=== PATIENT | female | born 1980 | race Caucasian/White ===

== ENCOUNTER → 2021-06-17 03:18 | Outpatient (CLI) | payer OTHER, SELFPAY ==
[2021-06-17 20:49] LABS: SARS-CoV-2 RNA PCR Negative
== END ==
PROVIDERS: PCP Physician Assistant; Visit Provider Physician Assistant
DX: R05.1 Acute cough (principal); Z20.822 Contact with and (suspected) exposure to COVID-19
CPT/HCPCS: C9803; U0003; U0005

== ENCOUNTER 2022-01-13 11:28 | Emergency (ER) | payer OTHER, SELFPAY ==
[2022-01-13 11:50] VITALS: BP 122/63; PULSE 74; RESP 20; TEMP 36.6; O2SAT 96
--- NOTE | 2022-01-13 12:38 | ED.URI ---
HPI - URI/Sore Throat General Chief Complaint: Upper Respiratory Infection Stated Complaint: sore throat Time Seen by Provider: 01/13/22 12:38 Source: patient Mode of arrival: ambulatory Limitations: no limitations History of Present Illness HPI Narrative: 41 yo F presents with c/o sore throat, uvula swelling, PND since last night. States throat is painful and feels like it's closing. have never had uvula hanging down before and touching my tongue . No fever/chills. no recent covid exposure. Speaking in full sentences. No difficulty swallowing oral secretions. all systems reviewed and negative except as noted above. Related Data Home Medications Medication Instructions Recorded Confirmed alprazolam 0.25 mg tablet 0.25 mg PO DIRECTED 01/13/22 01/13/22 dapagliflozin 5 mg-metformin ER 1 tablet PO DIRECTED 01/13/22 01/13/22 1,000 mg tablet,extended release 24hr (Xigduo XR) escitalopram oxalate 20 mg tablet 20 mg PO DAILY 01/13/22 01/13/22 rosuvastatin 5 mg tablet 5 mg PO DAILY 01/13/22 01/13/22 zolpidem 10 mg tablet 10 mg PO DAILY 01/13/22 01/13/22 Allergies Allergy/AdvReac Type Severity Reaction Status Date / Time No Known Allergies Allergy Mild Verified 01/13/22 11:31 Review of Systems Review of Systems: CONSTITUTIONAL: Denies fever, chills, or sweats. EYES: Denies visual changes, redness, or discharge. ENT: Denies rhinorrhea, congestion. Reports sore throat, uvula swelling. CARDIOVASCULAR: Denies chest pain, palpitations, or edema. RESPIRATORY: Denies cough or dyspnea. GASTROINTESTINAL: Denies abdominal pain, nausea, vomiting, or diarrhea. GENITOURINARY: Denies dysuria or hematuria. SKIN: Denies rash or itching. MUSCULOSKELETAL: Denies back pain, joint pain, or myalgia. NEUROLOGIC: Denies headache, numbness, or weakness. PSYCHIATRIC: Denies anxiety or depression. All other systems reviewed are negative, except as documented in HPI. PMFSH Comments At time of signature, agree with nursing past medical, surgical, social and family history. There is no relevant family history pertinent to the presenting complaint. Exam Narrative: GENERAL: This is a well-nourished, well-developed patient, in no apparent distress. HEAD: normocephalic, atraumatic. EYES: PERRL. Sclera clear/white. Vision is grossly intact. EARS: External ears normal, auditory canals clear and without drainage, TMs normal without perforation. Hearing grossly intact. NOSE: External nose normal with no obvious nasal discharge, nares without redness, no rhinorrhea. THROAT: Mucous membranes moist, erythema to posterior pharynx. Erythema to uvula right swelling and enlargement. No exudates. No tonsillar swelling. NECK: Neck supple, non-tender without lymphadenopathy, masses or thyromegaly. CARDIOVASCULAR: Regular rate and rhythm without murmurs, gallops, or rubs. RESPIRATORY: Clear to auscultation. Breath sounds equal bilaterally. No wheezes, rales, or rhonchi. SKIN: warm, Dry, intact with no suspicious lesions or rash, good texture and turgor. NEURO: awake, alert, and oriented to person, place and time. There were no obvious focal neurologic abnormalities. EXTREMITIES: No joint tenderness, effusion, or edema noted. Course Course Level of Care: Express Care Visit Vital Signs Vital signs: Vital Signs Temperature 36.6 C 01/13/22 11:50 Pulse Rate 74 01/13/22 11:50 Respiratory Rate 20 01/13/22 11:50 Blood Pressure 122/63 01/13/22 11:50 Pulse Oximetry 96 01/13/22 11:50 Oxygen Delivery Room Air 01/13/22 11:50 Temperature 36.6 C 01/13/22 11:50 Pulse Rate 74 01/13/22 11:50 Respiratory Rate 20 01/13/22 11:50 Blood Pressure 122/63 01/13/22 11:50 Pulse Oximetry 96 01/13/22 11:50 Oxygen Delivery Room Air 01/13/22 11:50 Reviewed MDM - URI/Sore Throat MDM Narrative Medical decision making narrative: Patient is aware of diagnosis, understands and agrees to treatment plan. Anticipatory guidance given.
== END 2022-01-13 12:48 | disposition home or self-care (01) ==
PROVIDERS: Emergency Provider Nurse Practitioner Family; PCP Physician Assistant
DX: K12.2 Cellulitis and abscess of mouth (principal); Z20.822 Contact with and (suspected) exposure to COVID-19; E78.00 Pure hypercholesterolemia, unspecified; R73.03 Prediabetes; F32.A Depression, unspecified; F41.9 Anxiety disorder, unspecified
CPT/HCPCS: 87081; 87426; 87880; 99213; C9803; G0463

== ENCOUNTER 2022-04-22 12:26 | Emergency (ER) | payer OTHER, SELFPAY ==
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
[2022-04-22 14:35] VITALS: BP 140/85; PULSE 85; RESP 16; TEMP 36.4; O2SAT 99
== END 2022-04-22 13:30 | disposition home or self-care (01) ==
PROVIDERS: Emergency Provider Nurse Practitioner; PCP Physician Assistant
DX: M54.50 Low back pain, unspecified (principal); E78.00 Pure hypercholesterolemia, unspecified; R73.03 Prediabetes; F41.9 Anxiety disorder, unspecified; F32.A Depression, unspecified
CPT/HCPCS: 99213; G0463

== ENCOUNTER 2023-06-12 13:04 | Emergency (ER) | payer OTHER, SELFPAY ==
--- NOTE | 2023-06-12 13:18 | ED.URI ---
HPI - URI/Sore Throat General Chief Complaint: Upper Respiratory Infection Stated Complaint: left ear aches,back of throat swollen,headache Time Seen by Provider: 06/12/23 13:18 Source: patient Mode of arrival: ambulatory Limitations: no limitations History of Present Illness HPI Narrative: Tere is a 42-year-old female patient presenting to clinic today with complaints of left ear pain, uvula swelling, and headache. She reports uvula swelling started this morning. Left ear discomfort and headache with nasal congestion has been going on for the past few days. She denies any fever or chills. Denies any new medications. Does not take any blood pressure medications. Denies any difficulty swallowing or breathing. MD elicited complaint: sore throat, nasal congestion and other (Ear pain, headache) Related Data Home Medications Medication Instructions Recorded Confirmed alprazolam 0.25 mg tablet 0.25 mg PO DIRECTED 01/13/22 01/13/22 dapagliflozin propaned 5 1 tablet PO DIRECTED 01/13/22 01/13/22 mg-metformin ER 1,000 mg tablet, ext rel 24hr (Xigduo XR) escitalopram oxalate 20 mg tablet 20 mg PO DAILY 01/13/22 01/13/22 rosuvastatin 5 mg tablet 5 mg PO DAILY 01/13/22 01/13/22 zolpidem 10 mg tablet 10 mg PO DAILY 01/13/22 01/13/22 alprazolam 0.25 mg tablet 0.25 mg PO QID 04/22/22 04/22/22 aripiprazole 2 mg tablet 2 mg PO DAILY 04/22/22 04/22/22 dapagliflozin propaned 5 1 tablet PO DAILY 04/22/22 04/22/22 mg-metformin ER 1,000 mg tablet, ext rel 24hr (Xigduo XR) escitalopram oxalate 20 mg tablet 20 mg PO DAILY 04/22/22 04/22/22 rosuvastatin 5 mg tablet 5 mg PO DAILY 04/22/22 04/22/22 zolpidem 10 mg tablet 10 mg PO HS PRN Insomnia 04/22/22 04/22/22 Allergies Allergy/AdvReac Type Severity Reaction Status Date / Time No Known Allergies Allergy Verified 06/18/22 15:14 Review of Systems Review of Systems: Pertinent positives per HPI. Patient denies any fever, chills, rash,visual changes, dizziness, cough, shortness of breath, chest pain, palpitations, nausea, vomiting, diarrhea, constipation, abdominal pain, or any urinary issues. FOR[facility]LY [facility], [facility] Social History Social History Alcohol intake: never Comments At the time of my signature, I reviewed and agree with the nursing past medical, surgical, social, and family history. There is no relevant family history pertinent to the patient complaint. Exam Narrative: General: Well-developed, morbidly obese, in no apparent distress Head: Normocephalic, atraumatic Eyes: Pupils equally round and reactive to light bilaterally, EOM intact, sclera and conjunctive clear, no discharge, lids normal Ears: TMs intact and congested, ear canals clear, no drainage, grossly hearing normal. Nose: Nares patent, clear nasal discharge, no inflammation, no sinus tenderness. Mouth: Oral pharynx red blood mild swelling of the uvula without lesions or masses, good dentition, MMM. Neck: Supple, trachea midline, no enlargement of anterior or posterior cervical nodes, no thyroid masses or goiter palpable. Cardio: Regular rate and rhythm, s1 and s2 normal, no murmur appreciated. Resp: Clear to auscultation bilaterally, no rhonchi, rales, wheezing or rubs Course Course Emergency Course: Portions of this record may have been created with voice recognition software. Level of Care: Express Care Visit Vital Signs Vital signs: Vital Signs Temperature 36.6 C 06/12/23 13:22 Pulse Rate 70 06/12/23 13:22 Respiratory Rate 16 06/12/23 13:22 Blood Pressure 154/82 H 06/12/23 13:22 Pulse Oximetry 100 06/12/23 13:22 Oxygen Delivery Room Air 06/12/23 13:22 Temperature 36.6 C 06/12/23 13:22 Pulse Rate 70 06/12/23 13:22 Respiratory Rate 16 06/12/23 13:22 Blood Pressure 154/82 H 06/12/23 13:22 Pulse Oximetry 100 06/12/23 13:22 Oxygen Delivery Room Air 06/12/23 13:22 Vital signs reviewed
[2023-06-12 13:22] VITALS: BP 154/82; PULSE 70; RESP 16; TEMP 36.6; O2SAT 100
== END 2023-06-12 13:45 | disposition home or self-care (01) ==
PROVIDERS: Emergency Provider Nurse Practitioner Family; PCP Physician Assistant
DX: K12.2 Cellulitis and abscess of mouth (principal); J06.9 Acute upper respiratory infection, unspecified; Z20.822 Contact with and (suspected) exposure to COVID-19
CPT/HCPCS: 87081; 87426; 87804; 87880; 99213; C9803; G0463

== ENCOUNTER 2024-02-07 07:43 | Outpatient (CLI) | payer OTHER, SELFPAY ==
--- NOTE | ~2024-02-07 | XR_ITS ---
EXAMINATION: XR chest 2V 02/07/2024 08:04 INDICATION: Cough PROCEDURE: 2 view chest COMPARISON: No prior studies for comparison. FINDINGS: The lungs are clear. The cardiomediastinal silhouette is within normal limits. There are no pleural effusions. There is no pneumothorax suspected. IMPRESSION: 1: NO ACUTE CARDIOPULMONARY DISEASE. Reviewed, dictated and finalized at location B.
== END 2024-02-07 07:44 | disposition home or self-care (01) ==
PROVIDERS: PCP Physician Assistant; Visit Provider Physician Assistant
DX: R05.9 Cough, unspecified (principal)
CPT/HCPCS: 71046

== ENCOUNTER 2025-02-20 09:52 | Outpatient (CLI) | payer OTHER, SELFPAY ==
--- NOTE | ~2025-02-20 | MM_ITS ---
EXAMINATION: MM screening annemarie BI w peter HISTORY: Screening TECHNIQUE: Craniocaudal and mediolateral oblique 3-D tomosynthesis images were obtained and synthetic 2-D images were generated. CAD analysis was submitted and interpreted. COMPARISON: None provided BREAST PARENCHYMAL COMPOSITION: There are scattered areas of fibroglandular density. FINDINGS: There is no evidence of suspicious mass, calcification, or architectural distortion to suggest malignancy in either breast. IMPRESSION: 1. No mammographic evidence of malignancy. 2. Recommend routine screening mammography in one year. BI-RADS Category 1: Negative Reviewed, dictated and finalized at location B.
== END 2025-02-20 09:53 | disposition home or self-care (01) ==
PROVIDERS: PCP Physician Assistant; Visit Provider Physician Assistant
DX: Z12.31 Encounter for screening mammogram for malignant neoplasm of breast (principal)
CPT/HCPCS: 77063; 77067